=== PATIENT | male | born 1930 | race Caucasian/White ===

== ENCOUNTER 2017-03-12 19:53 | Emergency (ER) | payer OTHER ==
[~2017-03-12] VITALS: Ht 190.5 cm; Wt 77.1 kg
[2017-03-12 20:08] VITALS: BP 145/81
== END 2017-03-12 20:39 | disposition home or self-care (01) ==
LOC: ER 19:57
DX: J06.9 Acute upper respiratory infection, unspecified (principal); I10 Essential (primary) hypertension; N40.0 Benign prostatic hyperplasia without lower urinary tract symptoms
CPT/HCPCS: 99283; A4606; Z7610

== ENCOUNTER 2018-12-09 23:41 | Emergency (ER) | payer SELFPAY ==
[~2018-12-09] VITALS: Ht 182.9 cm; Wt 79.4 kg
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
[2018-12-10] MEDS ORDERED: ACETAMINOPHEN ES 500 MG TABLET PO ONE (00:30)
[2018-12-10] MEDS ORDERED: ACETAMINOPHEN ES 500 MG TABLET ONE (00:36)
--- NOTE | 2018-12-10 00:47 | NUR ---
IV LINE OBTAINED ON L AC 20G. BLOOD DRAWN AND GIVEN TO GARAGE MANAGER AT BEDSIDE
[2018-12-10 00:48] LABS: BASOPHILS # (AUTO) 0.1 /CMM (0.0-0.2); EOSINOPHILS % (AUTO) 2.5 % (0.0-6.0); HEMATOCRIT 40 % (39-51); HEMOGLOBIN 13.1 g/dL (13.5-17.5); LYMPHOCYTES # (AUTO) 1.3 /CMM (0.8-4.8); MEAN CORPUSCULAR HGB CONC 33 g/dl (31.0-36.0); MEAN CORPUSCULAR VOLUME 89 fL (80-96); MONOCYTES # (AUTO) 0.9 /CMM (0.1-1.30); MONOCYTES % (AUTO) 10.2 % (2.0-12.0); NEUTROPHILS # (AUTO) 5.9 /CMM (1.8-8.9); NEUTROPHILS % (AUTO) 70.3 % (43.0-81.0); PLATELET COUNT (AUTO) 208 /CMM (150-450); RED BLOOD CELL COUNT(AUTO) 4.52 MIL/uL (4.5-6.0); WHITE BLOOD COUNT (AUTO) 8.4 K/uL (4.3-11.0)
[2018-12-10 01:10] LABS: ALANINE AMINOTRANSFERASE 17 U/L (12-78); ALBUMIN 3.3 g/dL (3.4-5.0); ALKALINE PHOSPHATASE 73 U/L (46-116); ASPARTATE AMINOTRANSFERASE 17 U/L (15-37); BILIRUBIN,DIRECT 0.1 mg/dL (0.0-0.2); BILIRUBIN,TOTAL 0.4 mg/dL (0.2-1.0); CALCIUM, SERUM 9.5 mg/dL (8.5-10.1); CARBON DIOXIDE 28 mmol/L (21-32); CHLORIDE 107 mmol/L (98-107); CREATININE 1.4 mg/dL (0.6-1.3); GLUCOSE 98 mg/dL (74-106); POTASSIUM 4.2 mmol/L (3.5-5.1); SODIUM SERUM 144 mmol/L (136-145); UREA NITROGEN, BLOOD 36 mg/dL (7-18)
[2018-12-10] MEDS ORDERED: IV NS 0.9% 500 ML BAG IV ONE (01:30)
--- NOTE | 2018-12-10 01:40 | NUR ---
PT TO CT ON KIKE
[2018-12-10] MEDS ORDERED: IOHEXOL-350 100 ML VIAL IV ONE (01:41)
[2018-12-10] MEDS ORDERED: IV NS 0.9% 250 ML IV ONE (01:41)
[2018-12-10] MEDS ORDERED: CT SWABBABLE VALVE TRANS SET 1 EA INFUS.SET MC ONE (01:41)
[2018-12-10 03:59] VITALS: BP 141/78
--- NOTE | 2018-12-10 04:18 | NUR ---
Patient discharged to home in stable condition. Written and verbal after care instructions given. Patient verbalizes understanding of instruction.IV removed. Catheter intact and site benign. Pressure and 4x4 applied to site. No bleeding noted. Pt ambulatory with a steady gait
== END 2018-12-10 04:18 | disposition home or self-care (01) ==
LOC: ER 23:49
DX: S42.001A Fracture of unspecified part of right clavicle, initial encounter for closed fracture (principal); S16.1XXA Strain of muscle, fascia and tendon at neck level, initial encounter; S20.211A Contusion of right front wall of thorax, initial encounter; S20.212A Contusion of left front wall of thorax, initial encounter; F07.81 Postconcussional syndrome; R51 Headache; M13.811 Other specified arthritis, right shoulder; I10 Essential (primary) hypertension; N40.0 Benign prostatic hyperplasia without lower urinary tract symptoms; Z98.890 Other specified postprocedural states; W18.09XA Striking against other object with subsequent fall, initial encounter; Y93.89 Activity, other specified; Y92.89 Other specified places as the place of occurrence of the external cause; Y99.8 Other external cause status
CPT/HCPCS: 36415; 70450; 70498; 71045; 73200; 80048; 80076; 85025; 85730; 99284; J7040; J7050; Q9967

== ENCOUNTER 2019-01-06 17:58 | Emergency (ER) | payer OTHER ==
[~2019-01-06] VITALS: Ht 182.9 cm; Wt 78.9 kg
[2019-01-06] MEDS ORDERED: LIDOCAINE 2% 20 ML MDV ONE (18:44)
[2019-01-06] MEDS ORDERED: TDAP [DIPH/PERTUSSIS/TET] 0.5 ML VIAL IM ONE ×2 (18:45→19:00)
[2019-01-06] MEDS ORDERED: IBUPROFEN 600 MG TABLET PO ONE ×2 (18:45→19:00)
[2019-01-06] MEDS ORDERED: LIDOCAINE 2% 20 ML MDV TP ONE (19:00)
--- NOTE | 2019-01-06 19:17 | NUR ---
DR. CEDENO GIVEN 3 VENTURA TO PATIENT
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
[2019-01-06 19:39] VITALS: BP 118/59
== END 2019-01-06 19:40 | disposition home or self-care (01) ==
LOC: ER 18:01
DX: S01.01XA Laceration without foreign body of scalp, initial encounter (principal); I10 Essential (primary) hypertension; N40.0 Benign prostatic hyperplasia without lower urinary tract symptoms; Z98.890 Other specified postprocedural states; W01.0XXA Fall on same level from slipping, tripping and stumbling without subsequent striking against object, initial encounter; Y93.89 Activity, other specified; Y92.89 Other specified places as the place of occurrence of the external cause; Y99.8 Other external cause status
CPT/HCPCS: 12002; 70450; 71045; 72125; 90471; 90715; 99284; J3490

== ENCOUNTER 2019-01-21 15:16 | Emergency (ER) | payer OTHER ==
[~2019-01-21] VITALS: Ht 182.9 cm; Wt 79.4 kg
[2019-01-21 15:57] VITALS: BP 128/78
--- NOTE | 2019-01-21 16:13 | NUR ---
SEEN AND EXAMINED BY CHANCE SANTA.
--- NOTE | 2019-01-21 16:36 | NUR ---
Patient discharged to home in stable condition. Written and verbal after care instructions given. Patient verbalizes understanding of instruction.
== END 2019-01-21 16:36 | disposition home or self-care (01) ==
LOC: ER 15:16
DX: S01.01XD Laceration without foreign body of scalp, subsequent encounter (principal); R51 Headache; R42 Dizziness and giddiness; I10 Essential (primary) hypertension; N40.0 Benign prostatic hyperplasia without lower urinary tract symptoms; Z98.890 Other specified postprocedural states; W18.39XD Other fall on same level, subsequent encounter

== ENCOUNTER 2020-06-06 15:34 | Inpatient (IN) | payer OTHER ==
[~2020-06-06] VITALS: Ht 203.2 cm; Wt 79.4 kg
[2020-06-06] MEDS ORDERED: ACETAMINOPHEN ES 500 MG TABLET ONE (17:53)
[2020-06-06 17:58] LABS: BASOPHILS # (AUTO) 0.1 /CMM (0.0-0.2)
[2020-06-06] MEDS ORDERED: ACETAMINOPHEN ES 500 MG TABLET PO ONE (18:00)
[2020-06-06 18:02] LABS: WHITE BLOOD COUNT (AUTO) 12.6 K/uL (4.3-11.0)
[2020-06-06 18:04] LABS: BASOPHILS % (AUTO) 0.6 % (0.0-2.0); EOSINOPHILS % (AUTO) 0.5 % (0.0-6.0); HEMATOCRIT 36 % (39-51); HEMOGLOBIN 11.8 g/dL (13.5-17.5); LYMPHOCYTES # (AUTO) 0.9 /CMM (0.8-4.8); LYMPHOCYTES % (AUTO) 6.9 % (20.0-44.0); MEAN CORPUSCULAR HGB CONC 32 g/dl (31.0-36.0); MEAN CORPUSCULAR VOLUME 89 fL (80-96); MONOCYTES % (AUTO) 7.8 % (2.0-12.0); NEUTROPHILS # (AUTO) 10.6 /CMM (1.8-8.9); NEUTROPHILS % (AUTO) 84.2 % (43.0-81.0); PLATELET COUNT (AUTO) 182 /CMM (150-450); RED BLOOD CELL COUNT(AUTO) 4.08 MIL/uL (4.5-6.0)
[2020-06-06 18:05] LABS: CALCIUM, SERUM 8.1 mg/dL (8.5-10.1); CARBON DIOXIDE 27 mmol/L (21-32); CHLORIDE 106 mmol/L (98-107); CREATININE 1.5 mg/dL (0.6-1.3); GLUCOSE 100 mg/dL (74-106); POTASSIUM 4.1 mmol/L (3.5-5.1); SODIUM SERUM 141 mmol/L (136-145); UREA NITROGEN, BLOOD 24 mg/dL (7-18)
[2020-06-06] MEDS ORDERED: TAMS-12 PO (18:17)
[2020-06-06] MEDS ORDERED: B/P MED (18:17)
[2020-06-06] MEDS ORDERED: ASPI-1169 PO (18:17)
[2020-06-06] MEDS ORDERED: SLEEPING (18:17)
[2020-06-06] MEDS ORDERED: METO25TA4 PO (18:42)
[2020-06-06] MEDS ORDERED: AMLO-213 PO (18:42)
[2020-06-06] MEDS ORDERED: FINA5TAB11 PO (18:42)
[2020-06-06] MEDS ORDERED: AMIT100T2 PO (18:42)
[2020-06-06] MEDS ORDERED: TEMA15CA PO (18:42)
[2020-06-06 21:15] VITALS: BP 130/67
[2020-06-06] MEDS ORDERED: ACETAMINOPHEN 325 MG TABLET PO PRN (21:30)
[2020-06-06] MEDS ORDERED: HYDROCODONE/APAP 5/325MG TABLET PO PRN (21:30)
[2020-06-06] MEDS ORDERED: ONDANSETRON HCL/PF 4 MG/2 ML VIAL IVP PRN (21:30)
[2020-06-06] MEDS ORDERED: MORPHINE SULFATE INJ 2 MG/ML DISP.SYRIN IV PRN (21:30)
[2020-06-06] MEDS ORDERED: Z GUARD REMEDY 2 OZ OINT TP PRN (21:30)
[2020-06-06 21:43] LABS: ALANINE AMINOTRANSFERASE 29 U/L (12-78); ALBUMIN 3.3 g/dL (3.4-5.0); ALKALINE PHOSPHATASE 74 U/L (46-116); ASPARTATE AMINOTRANSFERASE 29 U/L (15-37); B-TYPE NATRIURETIC PEPTIDE 197 PG/ML (0-125); BILIRUBIN,DIRECT 0.1 mg/dL (0.0-0.2); BILIRUBIN,TOTAL 0.4 mg/dL (0.2-1.0); TOTAL PROTEIN, SERUM 6.6 g/dL (6.4-8.2)
[2020-06-06 22:00] VITALS: BP 127/72
[2020-06-06] MEDS ORDERED: AMITRIPTYLINE HCL 50 MG TABLET PO SCH (22:00)
[2020-06-06] MEDS: TEMAZEPAM 15 MG CAPSULE PO PRN (22:26)
[2020-06-06] MEDS: TAMSULOSIN 0.4 MG CAP.SR.24H PO SCH (22:26)
[2020-06-06] MEDS: AMITRIPTYLINE HCL 25 MG TABLET PO SCH (22:45)
[2020-06-06] MEDS: IV 1/2NS 1000 ML 1,000 ML IV PRN (23:44)
[2020-06-07] VITALS: BP 130/67
[2020-06-07 04:00] VITALS: BP 142/76
[2020-06-07 07:35] LABS: BASOPHILS % (AUTO) 0.6 % (0.0-2.0); EOSINOPHILS % (AUTO) 3.2 % (0.0-6.0); HEMATOCRIT 35 % (39-51); HEMOGLOBIN 11.7 g/dL (13.5-17.5); LYMPHOCYTES # (AUTO) 0.9 /CMM (0.8-4.8); LYMPHOCYTES % (AUTO) 13.6 % (20.0-44.0); MEAN CORPUSCULAR HGB CONC 33 g/dl (31.0-36.0); MEAN CORPUSCULAR VOLUME 88 fL (80-96); MONOCYTES # (AUTO) 0.7 /CMM (0.1-1.30); MONOCYTES % (AUTO) 10.8 % (2.0-12.0); NEUTROPHILS # (AUTO) 4.7 /CMM (1.8-8.9); NEUTROPHILS % (AUTO) 71.8 % (43.0-81.0); PLATELET COUNT (AUTO) 173 /CMM (150-450); RED BLOOD CELL COUNT(AUTO) 3.97 MIL/uL (4.5-6.0); WHITE BLOOD COUNT (AUTO) 6.6 K/uL (4.3-11.0)
[2020-06-07 08:00] VITALS: BP 147/76
[2020-06-07 08:05] LABS: ALANINE AMINOTRANSFERASE 24 U/L (12-78); ALBUMIN 2.8 g/dL (3.4-5.0); ALKALINE PHOSPHATASE 75 U/L (46-116); ASPARTATE AMINOTRANSFERASE 19 U/L (15-37); BILIRUBIN,TOTAL 0.7 mg/dL (0.2-1.0); CALCIUM, SERUM 8.4 mg/dL (8.5-10.1); CARBON DIOXIDE 24 mmol/L (21-32); CHLORIDE 107 mmol/L (98-107); CREATININE 1.2 mg/dL (0.6-1.3); GLUCOSE 129 mg/dL (74-106); PHOSPHORUS 2.6 mg/dL (2.5-4.9); POTASSIUM 3.7 mmol/L (3.5-5.1); SODIUM SERUM 139 mmol/L (136-145); TOTAL PROTEIN, SERUM 6.2 g/dL (6.4-8.2); UREA NITROGEN, BLOOD 20 mg/dL (7-18)
[2020-06-07] MEDS: PANTOPRAZOLE 40 MG TABLET.DR PO SCH (08:23)
[2020-06-07] MEDS: FINASTERIDE (5 MG) 5 MG TABLET PO SCH (08:38)
[2020-06-07] MEDS: AMLODIPINE BESYLATE 10 MG TABLET PO SCH (08:38)
[2020-06-07] MEDS: METOPROLOL SUCCINATE 25 MG TAB.SR.24H PO SCH (08:39)
[2020-06-07] MEDS: ASPIRIN 81 MG TAB.CHEW PO SCH (08:39)
[2020-06-07 09:56] LABS: THYROID STIMULATING HORMONE 2.816 uIU/mL (0.358-3.74)
[2020-06-07 11:33] LABS: IRON, SERUM 42 ug/dl (50-175); TOTAL IRON BINDING CAPACITY 252 ug/dl (250-450)
[2020-06-07] MEDS ORDERED: DICL100G26 TP (12:41)
[2020-06-07] MEDS ORDERED: METO25TA6 PO (12:42)
[2020-06-07] MEDS: METHYL SALICYLATE/MENTHOL 28GM 28 GM TUBE TP SCH ×2 (14:17→22:01)
[2020-06-07] MEDS: IV 1/2NS 1000 ML 1,000 ML IV PRN (15:59)
[2020-06-07 16:00] VITALS: BP 128/75
[2020-06-07 20:00] VITALS: BP 144/72
[2020-06-07 21:29] LABS: BILIRUBIN,URINE NEGATIVE (NEGATIVE); COLOR,URINE YELLOW (YELLOW); LEUKOCYTE ESTERASE ,URINE NEGATIVE (NEGATIVE); NITRITE, URINE NEGATIVE (NEGATIVE); PH,URINE 7.5 (5.0-8.0); PROTEIN,URINE NEGATIVE (NEGATIVE); UGLUCOSE NEGATIVE (NEGATIVE); UROBILINOGEN,URINE 0.2 EU/dL (0.2)
[2020-06-07] MEDS: AMITRIPTYLINE HCL 25 MG TABLET PO SCH (22:04)
[2020-06-07] MEDS: TAMSULOSIN 0.4 MG CAP.SR.24H PO SCH (22:04)
[2020-06-07 22:05] LABS: EOSINOPHIL,URINE None Seen
[2020-06-08] MEDS: PANTOPRAZOLE 40 MG TABLET.DR PO SCH (06:04)
[2020-06-08 07:14] LABS: BASOPHILS % (AUTO) 0.3 % (0.0-2.0); EOSINOPHILS % (AUTO) 2.8 % (0.0-6.0); HEMATOCRIT 36 % (39-51); HEMOGLOBIN 11.7 g/dL (13.5-17.5); LYMPHOCYTES % (AUTO) 11.2 % (20.0-44.0); MEAN CORPUSCULAR HGB CONC 33 g/dl (31.0-36.0); MEAN CORPUSCULAR VOLUME 88 fL (80-96); MONOCYTES # (AUTO) 0.9 /CMM (0.1-1.30); MONOCYTES % (AUTO) 10.6 % (2.0-12.0); NEUTROPHILS # (AUTO) 6.4 /CMM (1.8-8.9); NEUTROPHILS % (AUTO) 75.1 % (43.0-81.0); PLATELET COUNT (AUTO) 174 /CMM (150-450); RED BLOOD CELL COUNT(AUTO) 4.08 MIL/uL (4.5-6.0); WHITE BLOOD COUNT (AUTO) 8.5 K/uL (4.3-11.0)
[2020-06-08 07:37] LABS: CALCIUM, SERUM 7.9 mg/dL (8.5-10.1); CARBON DIOXIDE 27 mmol/L (21-32); CHLORIDE 104 mmol/L (98-107); GLUCOSE 105 mg/dL (74-106); MAGNESIUM 1.8 mg/dL (1.8-2.4); PHOSPHORUS 2.3 mg/dL (2.5-4.9); POTASSIUM 3.5 mmol/L (3.5-5.1); SODIUM SERUM 137 mmol/L (136-145); UREA NITROGEN, BLOOD 17 mg/dL (7-18)
[2020-06-08] MEDS: AMLODIPINE BESYLATE 10 MG TABLET PO SCH (08:16)
[2020-06-08] MEDS: FINASTERIDE (5 MG) 5 MG TABLET PO SCH (08:17)
[2020-06-08] MEDS: ASPIRIN 81 MG TAB.CHEW PO SCH (08:17)
[2020-06-08] MEDS: METOPROLOL SUCCINATE 25 MG TAB.SR.24H PO SCH (08:17)
[2020-06-08] MEDS: METHYL SALICYLATE/MENTHOL 28GM 28 GM TUBE TP SCH ×2 (08:19→16:34)
[2020-06-08 08:48] LABS: ALANINE AMINOTRANSFERASE 21 U/L (12-78); ALBUMIN 2.8 g/dL (3.4-5.0); ALKALINE PHOSPHATASE 73 U/L (46-116); ASPARTATE AMINOTRANSFERASE 16 U/L (15-37); BILIRUBIN,TOTAL 0.7 mg/dL (0.2-1.0); TOTAL PROTEIN, SERUM 6.4 g/dL (6.4-8.2)
[2020-06-08] MEDS ORDERED: K PHOS NEUTRAL 250 MG TABLET PO ONE (12:30)
[2020-06-08 20:00] VITALS: BP 131/68
[2020-06-08] MEDS: TAMSULOSIN 0.4 MG CAP.SR.24H PO SCH (21:06)
[2020-06-08] MEDS: AMITRIPTYLINE HCL 25 MG TABLET PO SCH (21:06)
[2020-06-08] MEDS: IV 1/2NS 1000 ML 1,000 ML IV PRN (22:20)
[2020-06-09] MEDS: TEMAZEPAM 15 MG CAPSULE PO PRN (01:38)
[2020-06-09] MEDS: PANTOPRAZOLE 40 MG TABLET.DR PO SCH (06:44)
[2020-06-09 07:23] LABS: CALCIUM, SERUM 7.9 mg/dL (8.5-10.1); CREATININE 1.1 mg/dL (0.6-1.3); PHOSPHORUS 2.9 mg/dL (2.5-4.9); POTASSIUM 3.8 mmol/L (3.5-5.1)
[2020-06-09 08:00] VITALS: BP 128/69
[2020-06-09] MEDS: FINASTERIDE (5 MG) 5 MG TABLET PO SCH (08:29)
[2020-06-09] MEDS: METOPROLOL SUCCINATE 25 MG TAB.SR.24H PO SCH (08:30)
[2020-06-09] MEDS: AMLODIPINE BESYLATE 10 MG TABLET PO SCH (08:31)
[2020-06-09] MEDS: ASPIRIN 81 MG TAB.CHEW PO SCH (08:32)
[2020-06-09] MEDS: METHYL SALICYLATE/MENTHOL 28GM 28 GM TUBE TP SCH ×2 (08:35→16:47)
[2020-06-09 16:00] VITALS: BP 121/67
[2020-06-09] MEDS: IV 1/2NS 1000 ML 1,000 ML IV PRN (17:51)
[2020-06-09 20:00] VITALS: BP 130/66
[2020-06-09] MEDS ORDERED: BISACODYL SUPP (10 MG) 10 MG/SUPP.RECT SUPP.RECT RC PRN (22:00)
[2020-06-09] MEDS: TAMSULOSIN 0.4 MG CAP.SR.24H PO SCH (22:10)
[2020-06-09] MEDS: DOCUSATE SODIUM 100 MG CAPSULE PO SCH (22:10)
[2020-06-09] MEDS: AMITRIPTYLINE HCL 25 MG TABLET PO SCH (22:10)
[2020-06-09] MEDS: ENOXAPARIN SODIUM 40 MG/0.4 ML DISP.SYRIN SQ SCH (22:11)
[2020-06-10] MEDS: TEMAZEPAM 15 MG CAPSULE PO PRN (00:53)
[2020-06-10 08:00] VITALS: BP 128/76
[2020-06-10] MEDS: FINASTERIDE (5 MG) 5 MG TABLET PO SCH (08:33)
[2020-06-10] MEDS: PANTOPRAZOLE 40 MG TABLET.DR PO SCH (08:33)
[2020-06-10] MEDS: ASPIRIN 81 MG TAB.CHEW PO SCH (08:33)
[2020-06-10] MEDS: METOPROLOL SUCCINATE 25 MG TAB.SR.24H PO SCH (08:34)
[2020-06-10] MEDS: AMLODIPINE BESYLATE 10 MG TABLET PO SCH (08:34)
[2020-06-10] MEDS: METHYL SALICYLATE/MENTHOL 28GM 28 GM TUBE TP SCH ×2 (09:14→16:14)
[2020-06-10 09:38] LABS: BASOPHILS % (AUTO) 0.5 % (0.0-2.0); EOSINOPHILS % (AUTO) 3.2 % (0.0-6.0); HEMATOCRIT 34 % (39-51); HEMOGLOBIN 11.3 g/dL (13.5-17.5); LYMPHOCYTES % (AUTO) 16.9 % (20.0-44.0); MEAN CORPUSCULAR HGB CONC 33 g/dl (31.0-36.0); MEAN CORPUSCULAR VOLUME 88 fL (80-96); MONOCYTES # (AUTO) 0.6 /CMM (0.1-1.30); MONOCYTES % (AUTO) 10.5 % (2.0-12.0); NEUTROPHILS # (AUTO) 4.1 /CMM (1.8-8.9); NEUTROPHILS % (AUTO) 68.9 % (43.0-81.0); PLATELET COUNT (AUTO) 177 /CMM (150-450); WHITE BLOOD COUNT (AUTO) 5.9 K/uL (4.3-11.0)
[2020-06-10 09:52] LABS: CALCIUM, SERUM 8.2 mg/dL (8.5-10.1); POTASSIUM 3.5 mmol/L (3.5-5.1)
[2020-06-10 09:57] LABS: ALBUMIN 2.5 g/dL (3.4-5.0); BILIRUBIN,TOTAL 0.5 mg/dL (0.2-1.0); MAGNESIUM 1.9 mg/dL (1.8-2.4)
[2020-06-10] MEDS: IV 1/2NS 1000 ML 1,000 ML IV PRN (10:11)
[2020-06-10 16:00] VITALS: BP 126/62
[2020-06-10 20:00] VITALS: BP 140/78
[2020-06-10] MEDS: ENOXAPARIN SODIUM 40 MG/0.4 ML DISP.SYRIN SQ SCH (22:43)
[2020-06-10] MEDS: TAMSULOSIN 0.4 MG CAP.SR.24H PO SCH (22:44)
[2020-06-10] MEDS: AMITRIPTYLINE HCL 25 MG TABLET PO SCH (22:44)
[2020-06-10] MEDS: DOCUSATE SODIUM 100 MG CAPSULE PO SCH (22:44)
[2020-06-11] MEDS: TEMAZEPAM 15 MG CAPSULE PO PRN ×2 (02:05→21:01)
[2020-06-11] MEDS: IV 1/2NS 1000 ML 1,000 ML IV PRN (04:31)
[2020-06-11] MEDS: PANTOPRAZOLE 40 MG TABLET.DR PO SCH (07:35)
[2020-06-11 08:00] VITALS: BP 150/83
[2020-06-11] MEDS ORDERED: MAGNESIUM HYDROXIDE 30 ML UDC PO PRN (08:00)
[2020-06-11] MEDS: ASPIRIN 81 MG TAB.CHEW PO SCH (08:25)
[2020-06-11] MEDS: METOPROLOL SUCCINATE 25 MG TAB.SR.24H PO SCH (08:25)
[2020-06-11] MEDS: FINASTERIDE (5 MG) 5 MG TABLET PO SCH (08:25)
[2020-06-11] MEDS: AMLODIPINE BESYLATE 10 MG TABLET PO SCH (08:25)
[2020-06-11] MEDS: METHYL SALICYLATE/MENTHOL 28GM 28 GM TUBE TP SCH ×2 (08:53→16:51)
[2020-06-11 16:00] VITALS: BP 146/74
[2020-06-11 20:00] VITALS: BP 135/71
[2020-06-11] MEDS: AMITRIPTYLINE HCL 25 MG TABLET PO SCH (21:01)
[2020-06-11] MEDS: DOCUSATE SODIUM 100 MG CAPSULE PO SCH (21:01)
[2020-06-11] MEDS: TAMSULOSIN 0.4 MG CAP.SR.24H PO SCH (21:01)
[2020-06-11] MEDS: ENOXAPARIN SODIUM 40 MG/0.4 ML DISP.SYRIN SQ SCH (21:06)
[2020-06-12 08:00] VITALS: BP 134/70
[2020-06-12] MEDS: ASPIRIN 81 MG TAB.CHEW PO SCH (08:25)
[2020-06-12] MEDS: FINASTERIDE (5 MG) 5 MG TABLET PO SCH (08:25)
[2020-06-12] MEDS: AMLODIPINE BESYLATE 10 MG TABLET PO SCH (08:26)
[2020-06-12] MEDS: PANTOPRAZOLE 40 MG TABLET.DR PO SCH (08:26)
[2020-06-12] MEDS: METOPROLOL SUCCINATE 25 MG TAB.SR.24H PO SCH (08:26)
[2020-06-12] MEDS: METHYL SALICYLATE/MENTHOL 28GM 28 GM TUBE TP SCH ×2 (08:29→16:17)
[2020-06-12 13:00] VITALS: BP 123/67
[2020-06-12 20:00] VITALS: BP 125/66
[2020-06-12] MEDS: AMITRIPTYLINE HCL 25 MG TABLET PO SCH (22:01)
[2020-06-12] MEDS: TAMSULOSIN 0.4 MG CAP.SR.24H PO SCH (22:01)
[2020-06-12] MEDS: TEMAZEPAM 15 MG CAPSULE PO PRN (22:03)
[2020-06-12] MEDS: DOCUSATE SODIUM 100 MG CAPSULE PO SCH (22:04)
[2020-06-12] MEDS: ENOXAPARIN SODIUM 40 MG/0.4 ML DISP.SYRIN SQ SCH (22:04)
[2020-06-13 08:00] VITALS: BP 128/69
[2020-06-13] MEDS ORDERED: IV NS 0.9% 1,000 ML IV SCH (08:30)
[2020-06-13] MEDS: ASPIRIN 81 MG TAB.CHEW PO SCH (08:39)
[2020-06-13] MEDS: POTASSIUM CHLORIDE 20 MEQ TAB.PRT.SR PO SCH ×3 (08:39→11:10)
[2020-06-13] MEDS: FINASTERIDE (5 MG) 5 MG TABLET PO SCH (08:40)
[2020-06-13] MEDS: METOPROLOL SUCCINATE 25 MG TAB.SR.24H PO SCH (08:40)
[2020-06-13 08:43] VITALS: BP 128/69
[2020-06-13] MEDS: PANTOPRAZOLE 40 MG TABLET.DR PO SCH (08:43)
[2020-06-13] MEDS: AMLODIPINE BESYLATE 10 MG TABLET PO SCH (08:43)
[2020-06-13] MEDS: METHYL SALICYLATE/MENTHOL 28GM 28 GM TUBE TP SCH (09:03)
== END 2020-06-13 12:10 | DRG 535 ==
LOC: ER 15:42 → MED 21:03 → TELE 22:47 → MED 06-07 14:32
PROVIDERS: ADMIT Internal Medicine; ATTEND Internal Medicine
DX: S32.401A Unspecified fracture of right acetabulum, initial encounter for closed fracture (principal); N17.0 Acute kidney failure with tubular necrosis; D68.59 Other primary thrombophilia; N13.8 Other obstructive and reflux uropathy; W01.0XXA Fall on same level from slipping, tripping and stumbling without subsequent striking against object, initial encounter; Y92.9 Unspecified place or not applicable; N40.0 Benign prostatic hyperplasia without lower urinary tract symptoms; Z86.73 Personal history of transient ischemic attack (TIA), and cerebral infarction without residual deficits; I10 Essential (primary) hypertension; Z20.822 Contact with and (suspected) exposure to COVID-19; S09.90XA Unspecified injury of head, initial encounter; Y93.01 Activity, walking, marching and hiking; D64.9 Anemia, unspecified; K46.9 Unspecified abdominal hernia without obstruction or gangrene; Z79.899 Other long term (current) drug therapy; Z91.81 History of falling; M50.30 Other cervical disc degeneration, unspecified cervical region; Z79.82 Long term (current) use of aspirin; K59.00 Constipation, unspecified; M85.80 Other specified disorders of bone density and structure, unspecified site; M19.011 Primary osteoarthritis, right shoulder; G47.00 Insomnia, unspecified; F41.9 Anxiety disorder, unspecified; G31.9 Degenerative disease of nervous system, unspecified; D63.8 Anemia in other chronic diseases classified elsewhere; Z74.09 Other reduced mobility; Z86.19 Personal history of other infectious and parasitic diseases
CPT/HCPCS: 36415; 70450-TC; 71045-TC; 72125-TC; 73000-TC; 73502; 80048-TC; 80053-TC; 80076-TC; 82550-TC; 82570-TC; 82728-TC; 83540-TC; 83735-TC; 83880; 84100-TC; 84155-TC; 84300-TC; 84439-TC; 84443-TC; 84484-TC; 85025-TC; 85730-TC; 87081-TC; 93307-TC; 97112-TC; 97530-TC; C9803; G0378; J1650; J2270; J3490; J7030